=== PATIENT | female | born 1960 | race African-American/Black ===

== ENCOUNTER 2021-02-26 18:14 | Emergency (ER) | payer OTHER ==
[~2021-02-26] VITALS: Ht 160 cm; Wt 90.7 kg
[~2021-02-26 18:14] MED LIST: ATEN100T6 PO; HYDR-4004 PO
[2021-02-26 18:25] VITALS: BP 109/70
[2021-02-26] MEDS ORDERED: ASPIRIN 325 MG TAB PO ONE (19:00)
[2021-02-26] MEDS ORDERED: FUROSEMIDE 40 MG/4 ML VIAL IVP ONE (19:00)
--- NOTE | 2021-02-26 19:15 | NUR ---
PT AMBULATED TO BED 4
[2021-02-26] MEDS ORDERED: LORazepam 2 MG/ML VIAL IVP ONE (19:35)
--- NOTE | 2021-02-26 19:40 | NUR ---
XRAY AT BEDSIDE
[2021-02-26] MEDS ORDERED: LORazepam 1 MG TAB PO ONE (19:45)
--- NOTE | 2021-02-26 19:59 | NUR ---
JOSELITO SENT TO LAB
--- NOTE | 2021-02-26 21:43 | NUR ---
Patient does not wish to proceed with medical care recommended by DR SANCHEZ. Patient given information related to possible complications, up to and including , which could occur as a result of leaving hospital at this time. Patient verbalizes understanding of risks involved leaving against medical advice. Patient has signed AMA form.
--- NOTE | 2021-02-26 21:43 | NUR ---
PT WHEELED OUT
== END 2021-02-26 21:43 | disposition left against medical advice (07) ==
LOC: MED 18:14
DX: R07.89 Other chest pain (principal); R06.02 Shortness of breath; E11.9 Type 2 diabetes mellitus without complications; I10 Essential (primary) hypertension; Z79.899 Other long term (current) drug therapy; E78.5 Hyperlipidemia, unspecified; Z86.73 Personal history of transient ischemic attack (TIA), and cerebral infarction without residual deficits; Z91.012 Allergy to eggs
CPT/HCPCS: 36600; 71045; 82803; 93005; 99284

== ENCOUNTER 2022-10-24 14:12 | Emergency (ER) | payer OTHER ==
[~2022-10-24] VITALS: Ht 170.2 cm; Wt 99.8 kg
[2022-10-24 14:16] VITALS: BP 139/95
--- NOTE | 2022-10-24 14:17 | NUR ---
Dr. Ramirez evaluating pt in triage room.
[2022-10-24] MEDS ORDERED: DEXTROSE 50% 50 ML SYR IVP ONE (14:30)
--- NOTE | 2022-10-24 14:30 | NUR ---
W/c assisted to CHAIR Mckenzie Addendum: 10/24/22 at 1438 by SARAH W/c assisted to CHAIR Mandel
--- NOTE | 2022-10-24 14:32 | NUR ---
Apple juice given to patient; thickener added by daughter. Pt completed juice.
--- NOTE | 2022-10-24 14:34 | NUR ---
61/F ACCOMPANIED BY DAUGHTER C/O INTERMITTENT HEADACHE ONSET 2 WKS ACCOMPANIED BY LETHARGY ONSET YESTERDAY. PT REPORTS INCRESED HEADACHE RECENTLY. DAUGHTER REPORTS PATIENT IS AT BASELINE AO WITH BASELINE R SIDED DEFICIT INCLUDING NUMBNESS AND WEAKNESS FROM PREVIOUS HX CVA. 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 BS AT TRIAGE 61. UPON ATTEMPTING TO ESTABLISH IV, PATIENT REFUSED IV OR BLOOD DRAW, DAUGHTER STATES SHE WISHES TO FOLLOW HER MOM'S REQUEST. ERMD EXPLAINED RISK OF NOT INSERTING IV HER BS IS LOW AND RISK OF BLEED/CVA. PT AND DAUGHTER VERBALIZED ACKNOWLEDGEMENT OF RISK OF NOT INSERTING IV OR BLOOD DRAW. ORANGE JUICE PROVIDED WITH HOME-BROUGHT THICKENER WITH ERMD'S VERBAL OK. 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
--- NOTE | 2022-10-24 15:35 | NUR ---
Dr. Ramirez reevaluating patient in triage room accompanied by daughter.
--- NOTE | 2022-10-24 15:35 | NUR ---
REPEAT ACCUCHEK 59; PATIENT REQUESTING ANOTHER JUICE AT THIS TIME. REFUSING IV START / IV MEDICATION.
--- NOTE | 2022-10-24 15:51 | NUR ---
Patient does not wish to proceed with medical care recommended by Dr. Ramirez. Patient given information related to possible complications, up to and including , which could occur as a result of leaving hospital at this time. Patient verbalizes understanding of risks involved leaving against medical advice. Patient has signed AMA form. CT, RAD, EKG results handed to patient. Signature obtained for AMA form.
== END 2022-10-24 15:51 | disposition left against medical advice (07) ==
LOC: MED 14:12
DX: E11.65 Type 2 diabetes mellitus with hyperglycemia (principal); R51.9 Headache, unspecified; I99.8 Other disorder of circulatory system; Z79.4 Long term (current) use of insulin; Z79.899 Other long term (current) drug therapy; Z88.4 Allergy status to anesthetic agent; Z91.018 Allergy to other foods
CPT/HCPCS: 70450; 71045; 82948; 93005; 99291; Q0092

== ENCOUNTER 2023-05-25 14:46 | Emergency (ER) | payer OTHER ==
[~2023-05-25] VITALS: Ht 157.5 cm; Wt 90.7 kg
[2023-05-25 15:11] VITALS: BP 133/76; PULSE 80; RESP 18; TEMP 97.6; O2SAT 97
[2023-05-25 16:54] VITALS: BP 131/74; PULSE 78; RESP 15; TEMP 98.1; O2SAT 98
--- NOTE | 2023-05-25 16:54 | NUR ---
Patient discharged with v/s stable. Written and verbal after care instructions given and explained. Patient verbalized understanding. Ambulatory with steady gait. All questions addressed prior to discharge. Advised to follow up with PMD.
== END 2023-05-25 16:54 | disposition home or self-care (01) ==
LOC: MED 14:46
DX: R79.81 Abnormal blood-gas level (principal); E11.9 Type 2 diabetes mellitus without complications; I10 Essential (primary) hypertension; Z86.73 Personal history of transient ischemic attack (TIA), and cerebral infarction without residual deficits; Z91.012 Allergy to eggs; Z88.8 Allergy status to other drugs, medicaments and biological substances; Z79.899 Other long term (current) drug therapy
CPT/HCPCS: 36600; 82803; 99283